=== PATIENT | female | born 1955 | race Caucasian/White ===

== ENCOUNTER → 2016-06-25 | Outpatient (CLI) | payer OTHER ==
--- NOTE | 2016-06-26 09:13 | RAD ---
EXAM DESCRIPTION: Foot,Right 3 Views CLINICAL HISTORY: 60 years, Female, CLOSED FX OF METATARSAL BONE COMPARISON: April 02, 2011 TECHNIQUE: AP, lateral, and oblique views of the right foot FINDINGS: And a oblique fracture of the distal shaft of the fifth metatarsal with very slight displacement is present. Mild hallux valgus and degenerative changes at the base of the great toe is noted. Some hypertrophic change involving the interphalangeal joint of the great toe also noted. Pineal spurring is noted. IMPRESSION: Oblique fracture of the fifth metatarsal distally. Electronically signed by: Octavio Isabel MD 06/26/2016 9:12 AM CDT
== END | disposition home or self-care (01) ==
LOC: RAD 09:59
PROVIDERS: ATTEND Orthopaedic Surgery
DX: S92.354A Nondisplaced fracture of fifth metatarsal bone, right foot, initial encounter for closed fracture (principal); X58.XXXA Exposure to other specified factors, initial encounter

== ENCOUNTER → 2016-07-06 | Outpatient (CLI) | payer SELFPAY ==
--- NOTE | 2016-07-06 11:54 | RAD ---
EXAM DESCRIPTION: Foot,Right 3 Views CLINICAL HISTORY: 60 years,Female,FX COMPARISON: June 25, 2016 FINDINGS: The right foot demonstrates oblique fracture to the diaphysis of the fifth metatarsal tarsal with mild medial displacement of the distal fracture fragment. It may be slightly worsened prior study. If any. No other fracture seen. There is a 7 mm plantar surface calcaneal spur. Soft tissues some mild calcified atherosclerotic vascular disease. IMPRESSION: Oblique fracture distal diaphysis of the right fifth metatarsal with minimal displacement which may be slightly more displaced than prior study if any. [] Electronically signed by: Rasheed Pickett MD 07/06/2016 11:53 AM CDT
== END | disposition home or self-care (01) ==
LOC: RAD 08:42
PROVIDERS: ATTEND Orthopaedic Surgery
DX: S92.354A Nondisplaced fracture of fifth metatarsal bone, right foot, initial encounter for closed fracture (principal)

== ENCOUNTER → 2016-07-27 | Outpatient (CLI) | payer OTHER, SELFPAY ==
--- NOTE | 2016-07-27 11:37 | RAD ---
EXAM DESCRIPTION: Foot,Right 3 Views CLINICAL HISTORY: 61 years Female, NONDISPLACED FRACTURE OF 5TH METATARSAL BONE IMPRESSION: 3 views of the right foot reveal an obliquely oriented minimally displaced fracture through the distal diaphysis of the fifth metatarsal. There is 3mm of distraction. Degenerative change of the great toe. Electronically signed by: Ace Chong MD 07/27/2016 11:36 AM CDT
== END | disposition home or self-care (01) ==
LOC: RAD 08:37
PROVIDERS: ATTEND Orthopaedic Surgery
DX: S92.354A Nondisplaced fracture of fifth metatarsal bone, right foot, initial encounter for closed fracture (principal); X58.XXXA Exposure to other specified factors, initial encounter

== ENCOUNTER → 2016-09-21 | Outpatient (CLI) | payer SELFPAY ==
--- NOTE | 2016-09-21 11:31 | RAD ---
EXAM DESCRIPTION: Foot,Right 3 Views CLINICAL HISTORY: 61 years, Female, UNSPECIFIED METATARSAL FX COMPARISON: July 27 FINDINGS: Diagonal fracture distal 5th metatarsal has stable alignment with slight distraction and minimal interval healing less soft tissue swelling around the fracture. Plantar heel spur noted. Small posterior heel spur. IMPRESSION: Stable alignment distal 5th metatarsal fracture with minimal interval healing Electronically signed by: Deric Carrero MD 09/21/2016 11:30 AM CDT
== END | disposition home or self-care (01) ==
LOC: RAD 09:11
PROVIDERS: ATTEND Orthopaedic Surgery
DX: S92.301D Fracture of unspecified metatarsal bone(s), right foot, subsequent encounter for fracture with routine healing (principal); X58.XXXA Exposure to other specified factors, initial encounter

== ENCOUNTER → 2017-02-09 | Outpatient (CLI) | payer OTHER ==
--- NOTE | 2017-02-12 10:51 | MAM ---
EXAM DESCRIPTION: 3D Screening BILATERAL : Digital Mammography. CLINICAL HISTORY: 61 years Female SCREENING . No complaints. No family history breast cancer. Hysterectomy. No HRT. COMPARISON: 2-D digital screening bilateral studies 02/28/2015 and 02/22/2014. No prior reports available. TECHNIQUE: Bilateral CC and MLO projection full-field images, 3-D tomosynthesis digital mammographic technique. Also bilateral synthesized CC/ MLO full-field images. CAD not utilized. FINDINGS: The breast parenchymal density pattern is: Heterogeneously dense breast tissue, which may obscure small masses. No skin thickening or nipple retraction numerous bilateral elongated calcifications bilateral microcalcifications and bilateral coarse calcifications. Also bilateral vascular calcifications. Bilateral axillary lymph nodes. No focal, stellate mass or density, focal asymmetry , and no suspicious microcalcifications bilaterally. Stable mammograms compared to prior studies, taking into account differences in mammographic technique IMPRESSION: BI-RADS CATEGORY: 2 - BENIGN FINDINGS. FOLLOW UP: Routine digital bilateral screening, one year interval from January 2017. Written communication explaining the IMPRESSION and follow-up, will be mailed to the patient and referring health care provider. According to the [employer], yearly mammograms are recommended starting at age 40 and continuing as long as a woman is in good health. Any breast change noted on a breast self-exam should be reported promptly to the patient's healthcare provider. Breast MRI is recommended for women with an approximately 20-25% or greater lifetime risk of breast cancer, including women with a strong family history of breast or ovarian cancer and women who have been treated for Hodgkin's disease. A negative mammographic report should not delay tissue diagnosis in patients with significant clinical history or physical findings. Extremely dense breast tissue limits the sensitivity of digital mammography. Electronically signed by: Salas Rolon MD 02/12/2017 10:49 AM [facility]
== END ==
LOC: MAMMO 16:06
PROVIDERS: ATTEND Family Medicine
DX: Z12.31 Encounter for screening mammogram for malignant neoplasm of breast (principal)
CPT/HCPCS: 77063; G0202

== ENCOUNTER → 2017-07-07 | Outpatient (CLI) | payer OTHER ==
--- NOTE | 2017-07-08 10:08 | MRI ---
EXAM DESCRIPTION: Lumbar Spine w/o Contrast MRI. CLINICAL HISTORY: SPONDYLOSIS WITH RADICULOPATHY, LUMBAR REGION COMPARISON: MRI of the thoracic spine on the same visit. TECHNIQUE: Multiplanar, multiple standard sequences, non contrast MRI, lumbar spine. FINDINGS: L5-S1 disc space is scanned on axial T2 sequence #501, image 3. This is based upon assumption that the most inferior ribs seen on the sagittal T1 sequence originate from the T12 thoracic vertebra. Transitional S1 segment with rudimentary S1-2 disc and posterior disc space is fused. L5-S1: Disc desiccation and minimal space loss anterior bulging and endplate ridging. Posterior 4 mm broad-based bulge abutting the thecal sac and the descending S1 root nerve roots. Minimal flavum ligament hypertrophy and Mild canal narrowing. Bilateral Modic type II endplate reactive changes with bilateral disc spur complexes encroaching on the bilateral foramina which are minimally stenotic. Minimal arthrosis right facet. L4-5: Disc desiccation and minimal posterior bulge. Mild to moderate flavum ligament hypertrophy and facet arthrosis bilaterally. 3 mm cyst abutting the medial right facet impressing on the lateral thecal sac. Moderate to severe canal narrowing. Trace anterolisthesis. Disc facet complex encroaching on the left foramen which is mildly stenotic. More stenosis on the right by same mechanism. L3-4: Disc desiccation and tiny anterior bulging. Posterior 4 mm broad-based disc bulge abutting the thecal sac. Bilateral flavum ligament hypertrophy and mild facet arthrosis with moderate canal narrowing. Posterior Modic type II endplate reactive changes. Bilateral disc facet complex encroaching on the foramina with moderate to severe foraminal narrowing. L2-3: Anterior Modic type II endplate reactive changes with minimal bulging and endplate ridging. Tiny posterior disc bulge. Minimal flavum ligament hypertrophy and facet unremarkable. Canal narrowing. Bilateral moderate foraminal narrowing. L1-2: Minimal disc desiccation and anterior disc bulge and endplate ridging. Anterior Modic type II endplate reactive changes. Minimal hypertrophy of the posterior flavum ligaments. Facets unremarkable. Mild canal narrowing. Bilateral mild foraminal narrowing. Conus terminates at this level. T12-L1: Normal signal in the disc. Tiny posterior disc bulge. Anterior tiny Modic type II endplate reactive changes. Posterior elements unremarkable. Canal and foramina are patent. No scoliosis. Paravertebral soft tissues unremarkable.. Normal marrow signal in the remaining vertebral bodies and the posterior elements. Vertebral bodies are not compressed at any level. IMPRESSION: 1. Multiple levels of disc desiccation and bulging, flavum ligament hypertrophy and facet arthrosis, spondylosis, canal and foraminal narrowing/stenosis. 2. Transitional S1 segment with rudimentary S1-2 disc. Bilateral L5-S1 moderate spondylosis with foraminal stenosis. Correlate for bilateral L5 radiculopathy. 3. L4-5 disc desiccation bilateral foraminal stenosis. Correlate for bilateral L4 radiculopathy. 4. L3-4 disc desiccation bulging and posterior spondylosis. Bilateral severe foraminal narrowing. Anterior L2-3 spondylosis.. Electronically signed by: Salas Rolon MD 07/08/2017 10:07 AM CDT
--- NOTE | 2017-07-08 10:28 | MRI ---
EXAM DESCRIPTION: Thoracic Spine w/o Contrast: Magnetic Resonance Imaging. CLINICAL HISTORY: THORACIC RADICULOPATHY COMPARISON: MRI scan lumbar spine on the same visit. TECHNIQUE: Multiplanar, multiple standard sequences, non contrast MRI, thoracic spine. Axial images. T2-3 down to T8-9. FINDINGS: Anterior spondylosis at multiple levels with endplate ridging and spurs. Posterior T11-12 disc bulge in the midline but not touching the cord. Mild canal narrowing. Minimal arthrosis of the left facet and moderate foraminal narrowing. T10-11 minimal disc desiccation and minimal posterior bulging. Bilateral facet arthrosis more left than right and borderline left foraminal stenosis. Disc desiccation and minimal disc space loss T9-10. No significant posterior disc bulge. No canal or foraminal stenosis. Posterior midline bulge C7-T1 disc abutting the cord with moderate canal narrowing but no foraminal narrowing. Tiny posterior bulge T3-4 with no canal or foraminal narrowing. Remaining discs with normal signal. Disc spaces are preserved. Canal and foramina are patent. No scoliosis. Facet joints are unremarkable. Conus terminates at L1. Paravertebral soft tissues are unremarkable. Normal marrow signal in the vertebral bodies and the posterior elements. Vertebral bodies are not compressed at any level. IMPRESSION: 1. Multiple levels of thoracic endplate spondylosis anterior. 2. Minimal posterior bulging of the T10-11 disc. Facet arthrosis and Borderline left foraminal stenosis. Correlate for left T10 radiculopathy. 3. Posterior C7-T1 disc bulge abutting the cord. Tiny posterior bulge T3-4. 4. No vertebral body compression type fractures at any level. Electronically signed by: Salas Rolon MD 07/08/2017 10:27 AM CDT
== END ==
LOC: MRI 12:34
PROVIDERS: ATTEND Orthopaedic Surgery
DX: M47.26 Other spondylosis with radiculopathy, lumbar region (principal); R32 Unspecified urinary incontinence; M43.16 Spondylolisthesis, lumbar region

== ENCOUNTER → 2017-09-24 | Outpatient (CLI) | payer OTHER ==
--- NOTE | 2017-09-24 14:17 | MRI ---
EXAM DESCRIPTION: Ankle,Right CLINICAL HISTORY: PERONEAL TENDINITIS RIGHT LEG COMPARISON: None Available. TECHNIQUE: MRI of the right ankle/hindfoot is performed according to our usual protocol with multiplanar multi sequence imaging. FINDINGS: Today's examination shows advanced osteoarthritic degenerative changes between the tarsal navicular and the medial cuneiform. The joint space is markedly narrowed with extensive grade 4 chondrosis and prominent subchondral reactive edema and eburnation. Arthritic changes also very prominent between the lateral cuneiform and the base of the third metatarsal with joint space narrowing/grade 4 chondrosis/subchondral eburnation and edema and cyst formation. Subtalar joints and tibiotalar joint unremarkable. Evaluation of posterior compartment tendons shows tendinopathy of peroneus longus and brevis mild tenosynovitis. No full-thickness tear. Tibialis posterior unremarkable. Achilles unremarkable. Anterior compartment tendons intact and unremarkable. Medial and lateral ligament complexes of the ankle intact and unremarkable. IMPRESSION: 1. Significant hindfoot/midfoot arthritic changes as noted 2. Peroneus longus and peroneus brevis tendinopathy and tenosynovitis Electronically signed by: Justin Jamison MD 09/24/2017 2:16 PM CDT
== END ==
LOC: MRI 09:03
PROVIDERS: ATTEND Orthopaedic Surgery
DX: M76.71 Peroneal tendinitis, right leg (principal)

== ENCOUNTER → 2017-11-16 | Outpatient (CLI) | payer OTHER | LOC: LAB.O 16:33 | PROVIDERS: ATTEND Nurse Practitioner Family | DX: R60.0 Localized edema (principal); M19.071 Primary osteoarthritis, right ankle and foot ==

== ENCOUNTER → 2018-01-17 | Outpatient (CLI) | payer OTHER | LOC: LAB.O 11:42 | PROVIDERS: ATTEND Orthopaedic Surgery | DX: Z01.818 Encounter for other preprocedural examination (principal) ==

== ENCOUNTER 2018-01-25 05:34 | Day surgery (SDC) | payer OTHER ==
--- NOTE | 2018-01-24 09:32 | HP ---
CHIEF COMPLAINT: Right hand numbness. HISTORY OF PRESENT ILLNESS: Lauren is a 62-year-old female with a history of pain and numbness in the right hand and wrist. She has had this going on for years, but it has been getting progressively worse. She has had surgical intervention on the contralateral side. She has had ongoing discomfort and has requested operative intervention. After discussing the risks, benefits and alternatives to carpal tunnel release, the patient has given informed consent. PAST SURGICAL HISTORY: 1. Hysterectomy. 2. Bladder suspension. 3. Hammertoe correction. 4. Gastric bypass. 5. Ulnar nerve transposition. 6. x2. 7. Multiple LESIs. 8. Carpal tunnel release. 9. Blepharoplasty. 10. Midfoot fusion. MEDICATIONS: 1. Bupropion. 2. Buspirone. 3. Cyclobenzaprine. 4. Lasix. 5. Thyroid medication. 6. Oxybutynin. 7. Pantoprazole. 8. Ropinirole. 9. Tramadol. ALLERGIES: CODEINE, HYDROCODONE, KEFLEX, LORTAB, TESSALON, TETRACYCLINE. FAMILY HISTORY: None pertinent to today's complaint. SOCIAL HISTORY: The patient does not drink, smoke or use any illicit drugs. REVIEW OF SYSTEMS: Negative except as indicated in the History of Present Illness. PHYSICAL EXAMINATION: VITAL SIGNS: Blood pressure 131/86. Pulse 93. Height 5'1". Weight 172 pounds. MENTAL STATUS: The patient is awake, alert, and is able to give a good history and participate in the physical. The patient is oriented to person, place and time. SKIN: Normal tone and turgor. MUSCULOSKELETAL: She has positive Tinel's as well as positive carpal compression test. She has full molder sweep strength. There is no significant thenar atrophy. The hand is warm and well perfused. Sensation is intact proximal to the wrist. She has full 5/5 abduction strength. ASSESSMENT: 1. Carpal tunnel syndrome. PLAN: The plan at this point is for carpal tunnel release. We have discussed the risks, benefits, and alternatives to that and the patient has given informed consent. [id number]
[2018-01-25] MEDS ORDERED: SODIUM CHL 0.9% 100ML MINI-BAG 100 ML IVPB ONE (05:53)
[2018-01-25] MEDS ORDERED: LACTATED RINGERS 1,000 ML ONE (05:54)
[2018-01-25] MEDS ORDERED: ceFAZolin SODIUM 1 GM VIAL ONE ×2 (05:54→06:34)
[2018-01-25] MEDS ORDERED: LIDOCAINE 1% 10 ML VIAL INJ ONE ×2 (06:34→10:00)
[2018-01-25] MEDS ORDERED: BUPIVACAINE 0.25% INJ 30 ML VIAL INJ ONE (06:34)
[2018-01-25] MEDS ORDERED: fentaNYL CITRATE INJ 50 MCG/ML AMP ONE (06:39)
[2018-01-25] MEDS ORDERED: MIDAZOLAM INJ 2 MG/2 ML VIAL ONE (06:39)
[2018-01-25] MEDS ORDERED: CLINDAMYCIN IV 900MG 50 ML IVPB ONE (07:49)
[2018-01-25] MEDS: VANCOMYCIN HCL INJ 1,000 MG VIAL IVPB ONE ×2 (08:14→08:22)
[2018-01-25] MEDS ORDERED: traMADol HCL 50 MG TAB ONE (09:05)
[2018-01-25 09:40] VITALS: BP 158/84; TEMP 97.2; O2SAT 96
[2018-01-25] MEDS ORDERED: PROPOFOL 200 MG/20 ML VIAL IV ONE (10:00)
[2018-01-25] MEDS ORDERED: LIDOCAINE 1% W/ EPINEPHRINE 20 ML VIAL INJ ONE (10:00)
--- NOTE | 2018-01-25 14:06 | OP ---
DATE OF PROCEDURE: 01/25/18 PREOPERATIVE DIAGNOSIS: 1. Carpal tunnel syndrome. POSTOPERATIVE DIAGNOSIS: 1. Carpal tunnel syndrome. PROCEDURE: 1. Carpal tunnel release. SURGEON: Juan Cuba MD. HALL MANAGER: Salas Minor CST, SA-C. ANESTHESIA: Local with sedation. COMPLICATIONS: None. FINDINGS: Thickened of the transverse carpal ligament. INDICATION: Ms. Phillips has a history of carpal tunnel syndrome which has failed conservative measures. Because of her ongoing symptoms and the failure of conservative measures, the patient has requested operative intervention. After discussing the risks, benefits and alternatives to that, the patient has given informed consent for carpal tunnel release. PROCEDURE: The patient was brought to the Operating Room and placed in the supine position. Sedation was administered and local anesthetic was injected into the operative area under sterile conditions. After the injection of anesthetic, the arm was sterilely prepped and draped. A longitudinal incision was made directly overlying the transverse carpal ligament and blunt dissection was carried down to the ligament. The transverse carpal ligament was sharply transected along its length and a [place] elevator was used to ensure complete release of the ligament. Once release had been confirmed, the wound was thoroughly irrigated and the wound was closed with Nylon suture. A sterile dressing was placed and the patient was taken to the Day Surgery Unit. POSTOPERATIVE PLAN: The patient has been encouraged to do range of motion of the digits and will followup with us in two days. [facility][id number] [facility]
== END 2018-01-25 09:40 | disposition home or self-care (01) ==
LOC: AMB 05:34
PROVIDERS: ATTEND Orthopaedic Surgery
DX: G56.01 Carpal tunnel syndrome, right upper limb (principal); I10 Essential (primary) hypertension; E11.9 Type 2 diabetes mellitus without complications; K21.9 Gastro-esophageal reflux disease without esophagitis; Z98.84 Bariatric surgery status; Z88.5 Allergy status to narcotic agent; Z88.6 Allergy status to analgesic agent; Z88.8 Allergy status to other drugs, medicaments and biological substances; Z79.899 Other long term (current) drug therapy
CPT/HCPCS: 01810; 64721; J2250; J3010; J3370; J3490; J7050; J7120

== ENCOUNTER → 2018-02-10 | Outpatient (CLI) | payer OTHER ==
--- NOTE | 2018-02-11 09:36 | MAM ---
EXAM DESCRIPTION: 3D Screening BILATERAL : Digital Mammography. CLINICAL HISTORY: 62 years Female ANNUAL SCREENING . No complaints. No family history or personal history of breast cancer. Childbirth. Hysterectomy 15 years ago. Taking HRT 5 or more years ago.. Lifetime risk of developing breast cancer (Tyrer-Cuzick model)(%): 7. COMPARISON: Bilateral screening digital breast tomosynthesis 02/09/2017.. No prior reports available. TECHNIQUE: Bilateral CC and MLO projection full-field images, digital tomosynthesis mammographic technique. Bilateral digital 2-D full-field MLO images. CAD not available for tomosynthesis or 2-D images. FINDINGS: The breast parenchymal density pattern is: Scattered areas of fibroglandular density. No skin thickening or nipple retraction. Bilateral vascular calcifications. Bilateral axillary lymph nodes. Bilateral secretory calcifications. Bilateral solitary microcalcifications. Asymmetric increased density in the retroareolar right breast compared to the left. No new focal, stellate mass or density, focal asymmetry , and no suspicious microcalcifications bilaterally. Stable mammograms compared to prior study. IMPRESSION: Benign exam. BIRAD CATEGORY: 2 BENIGN FINDINGS. RECOMMENDATIONS: FOLLOW UP: Routine digital bilateral mammographic screening, one year interval from January 2018. Written communication explaining the IMPRESSION and follow-up, will be mailed to the patient and referring health care provider. According to the [employer], yearly mammograms are recommended starting at age 40 and continuing as long as a woman is in good health. Any breast change noted on a breast self-exam should be reported promptly to the patient's healthcare provider. Breast MRI is recommended for women with an approximately 20-25% or greater lifetime risk of breast cancer, including women with a strong family history of breast or ovarian cancer and women who have been treated for Hodgkin's disease. A negative mammographic report should not delay tissue diagnosis in patients with significant clinical history or physical findings. Extremely dense breast tissue limits the sensitivity of digital mammography. Electronically signed by: Salas Rolon MD 02/11/2018 9:35 AM PRESENTATION MANAGER
== END ==
LOC: LAB.O 08:40
PROVIDERS: ATTEND Orthopaedic Surgery
DX: Z12.31 Encounter for screening mammogram for malignant neoplasm of breast (principal); Z01.818 Encounter for other preprocedural examination

== ENCOUNTER → 2018-03-14 | Outpatient (CLI) | payer OTHER ==
--- NOTE | 2018-03-14 15:11 | MRI ---
Study: MRI of the Lumbar Spine. Indication: POST LUMBAR FUSION L3-S1 Technique: Multiplanar, multi sequence MRI of the lumbar spine was obtained with and without intravenous contrast. Comparison: July 07, 2017. Findings: The designated L5-S1 disc space level is visualized on axial T2 image 3. New bilateral L3, L4, L5, and S1 pedicle screws noted with suspected bilateral sacroiliac joint screws as well. Posterior vertical stabilization rods present. Associated susceptibility artifact present. L4-L5 interbody graft and laminectomy noted. L5-S1 laminectomy suspected as well. Within the right lateral laminectomy defect at L4-L5 there is a multilobulated fluid collection tracking posteriorly into the subcutaneous fat. The dominant component within the laminectomy defect measures up to 24 mm AP by 19 mm transverse by 22 mm craniocaudal. There is surrounding intramuscular edema within the paraspinal musculature. Evaluation for peripheral enhancement is limited due to susceptibility artifact. The subcutaneous fluid collection posterior to this extends from the L2 level to the S2 level and measures 12.7 cm craniocaudal by 3.2 cm transverse by 2.9 cm AP. Vertebral body height maintained. No marrow infiltrating lesion. Conus medullaris unremarkable. L1-L2: Mild bilateral facet arthrosis. No stenosis. L2-L3: Mild to moderate disc bulge. Mild bilateral neural foraminal narrowing. No spinal canal narrowing. L3-L4: Moderate disc space height loss and disc desiccation. Trace anterolisthesis. 4 mm disc uncovering. Mild bilateral facet arthrosis. No spinal canal narrowing. Moderate to severe bilateral neural foraminal narrowing. L4-L5: Trace anterolisthesis. No spinal canal narrowing. Annihilation of the neural foramen is limited due to the susceptibility artifact. There is at least moderate right and mild left neural foraminal narrowing. L5-S1: Severe disc space height loss and disc desiccation. Patchy Modic type II endplate changes. 4 mm disc osteophyte complex with moderate to severe bilateral neural foraminal narrowing. No spinal canal narrowing. Impression: L3-S1 fusion construct with a nonspecific postoperative fluid collection within the right L4-L5 laminectomy defect as well as an associated large subcutaneous fluid collection. Seroma, hematoma, or abscess could give this appearance. Multilevel lumbar disc disease with changes most pronounced at L5-S1 where there is a least moderate to severe bilateral neural foraminal narrowing. The right L4-L5 neural foramen is difficult to evaluate due to susceptibility artifact. CT myelography may better evaluate as clinically indicated. Electronically signed by: Vijay Hopper MD 03/14/2018 3:[address] [facility]
== END ==
LOC: MRI 10:00
PROVIDERS: ATTEND Orthopaedic Surgery
DX: Z47.89 Encounter for other orthopedic aftercare (principal); M51.86 Other intervertebral disc disorders, lumbar region

== ENCOUNTER → 2018-08-30 | Outpatient (CLI) | payer OTHER ==
--- NOTE | 2018-09-01 07:47 | RAD ---
EXAM DESCRIPTION: Foot,Right 3 Views CLINICAL HISTORY: 63 years Female, FOOT PN COMPARISON: September 21, 2016 FINDINGS: Postoperative changes in the midfoot, new from the prior study. No hardware other surgical complication. Old healed fifth metatarsal fracture. No acute fracture or malalignment. [id number]-[id number] degenerative changes at the first MTP joint. Moderate-sized plantar calcaneal enthesophyte. Vascular calcifications. IMPRESSION: Postoperative changes in the midfoot without apparent hardware or other surgical complication. Degenerative changes in the first MTP joint and calcaneal spurring. Old healed fifth metatarsal fracture. Electronically signed by: Dinesh Velasquez MD 09/01/2018 7:45 AM CDT
== END ==
LOC: RAD 16:37
PROVIDERS: ATTEND Orthopaedic Surgery
DX: M19.071 Primary osteoarthritis, right ankle and foot (principal); M77.31 Calcaneal spur, right foot; Z98.890 Other specified postprocedural states; Z87.81 Personal history of (healed) traumatic fracture

== ENCOUNTER → 2020-05-15 | Outpatient (CLI) | payer MEDICARE ==
--- NOTE | 2020-05-16 11:52 | RAD ---
EXAM DESCRIPTION: Chest,2 Views CLINICAL HISTORY: COUGH COMPARISON: None TECHNIQUE: PA/lateral FINDINGS: Screws in the proximal right humerus.. Heart size is normal with normal pulmonary vascularity. No pleural effusion or pneumothorax. Lungs are clear with no consolidating infiltrate. Lateral view shows intact sternum and spurring in the T-spine. IMPRESSION: No acute process is identified in the chest. Electronically signed by: Dusty Sharp MD 05/16/2020 11:51 AM [facility] [email or web address]]
== END ==
LOC: RAD 15:21
PROVIDERS: ATTEND Nurse Practitioner Family
DX: R05 Cough (principal)